=== PATIENT | male | born 1995 | race Caucasian/White ===

== ENCOUNTER 2023-08-26 12:58 | Emergency (ER) | payer OTHER, SELFPAY ==
[2023-08-26] MEDS ORDERED: Ketorolac Tromethamine 60 MG/2 ML VIAL ONE (13:29)
== END 2023-08-26 13:48 | disposition home or self-care (01) ==
LOC: NAV ERS 12:58
DX: M54.50 Low back pain, unspecified (principal)
CPT/HCPCS: 96372; 99283; J1885